=== PATIENT | female | born 1980 | race Asian ===

== ENCOUNTER → 2017-02-18 | Day surgery (SDC) | payer OTHER ==
--- NOTE | 2017-02-19 14:02 | PATH ---
Cytology Non-Gynecological Report Patient Name: GEO MONTALVO [facility] Rec. #: [id number] /Age/Gender: 1980 (Age: 36) / F Account: [id number] Location: RADIOLOGY Taken: 02/18/2017 Received: 02/18/2017 Reported: 02/19/2017 Physicians: Raman Sanches M.D. Specimen(s) Received RIGHT THYROID FNA Clinical History Right 2.24 x 0.62 x 0.97 cm Final Diagnosis THYROID, RIGHT, FINE NEEDLE ASPIRATION: SATISFACTORY FOR EVALUATION [place] CATEGORY II: BENIGN (NO MALIGNANT CELLS IDENTIFIED) BENIGN FOLLICULAR CELLS AND HURTHLE CELLS ALONG WITH ABUNDANT LYMPHOCYTES PRESENT, CONSISTENT WITH LYMPHOCYTIC (KEVON'S) THYROIDITIS IN THE PROPER CLINICAL CONTEXT. Comment: Recommend correlation with clinical findings and follow up as clinically indicated. Electronically Signed Pawel Becerra M.D. Gross Description Received are 6 direct smears, 3 of which are air-dried and Diff-Quik stained, and 3 of which are alcohol fixed and Pap stained. Also received is 20 ml of bloody formalin from which one cellblock is prepared.
== END | disposition home or self-care (01) ==
LOC: JRADIR 10:23
PROVIDERS: ATTEND Internal Medicine Endocrinology, Diabetes & Metabolism
PROC: 0G9H3ZX Drainage of Right Thyroid Gland Lobe, Percutaneous Approach, Diagnostic (ICD-10-PCS; principal; 2017-02-18)
PROC: BG44ZZZ Ultrasonography of Thyroid Gland (ICD-10-PCS; 2017-02-18)
DX: E06.3 Autoimmune thyroiditis (principal)
CPT/HCPCS: 76942; 88173; 88305-TC

== ENCOUNTER 2019-07-13 02:06 | Emergency (ER) | payer OTHER ==
[2019-07-13 02:24] VITALS: TEMP 98; BMI 32.0
[2019-07-13] MEDS ORDERED: METOCLOPRAMIDE HCL INJECTION 10 MG/2 ML VIAL IVPB ONE (03:12)
[2019-07-13] MEDS ORDERED: SODIUM CHLORIDE 0.9% 1000 ML INFUS.BAG IV ONE (03:12)
[2019-07-13] MEDS ORDERED: ACETAMINOPHEN 1000 MG/100 ML VIAL (NON FORMULARY) IVPB ONE (03:12)
[2019-07-13] MEDS ORDERED: ACETAMINOPHEN INJECTION 100 ML IVPB ONE (03:39)
[2019-07-13] MEDS ORDERED: METOCLOPRAMIDE HCL INJECTION 10 MG/2 ML VIAL ONE (03:39)
[2019-07-13 03:49] LABS: BASO % 0.8 % (0-2.0); EOS % 0.4 % (0-4.5); HEMATOCRIT 33.9 % (32.4-45.2); HEMOGLOBIN 11.2 GM/dL (10.7-15.3); LYMPH % 20.5 % (8-40); MCH 27.2 pg (25.7-33.7); MCHC 33.1 g/dl (32.0-36.0); MEAN CELL VOLUME 82.2 fl (80-96); MEAN PLT VOLUME 8.8 fl (7.5-11.1); MONO % 5.5 % (3.8-10.2); NEUT % 72.8 % (42.8-82.8); PLATELET COUNT 262 K/MM3 (134-434); RBC 4.12 M/mm3 (3.60-5.2); RDW 14.1 % (11.6-15.6); WHITE BLOOD COUNT 7.3 K/mm3 (4.0-10.0)
[2019-07-13 04:02] LABS: INR 1.02 (0.83-1.09)
[2019-07-13 04:15] LABS: BILIRUBIN,TOTAL 0.2 mg/dL (0.2-1); BLOOD UREA NITROGEN 12.3 mg/dL (7-18); CALCIUM 9.5 mg/dL (8.5-10.1); CREATININE 0.7 mg/dL (0.55-1.3); POTASSIUM 4.1 mmol/L (3.5-5.1); TOT PROT 7.7 g/dl (6.4-8.2)
[2019-07-13 04:59] LABS: EPI CELLS 3.4 /HPF (0-5/HPF); HYALINE CASTS 0 /lpf (0-8); PH,URINE 7.5 (5.0-8.0); URINE APPEARANCE CLEAR; URINE BACTERIA 91.4 /hpf (NEGATIVE); URINE BILIRUBIN NEGATIVE (NEGATIVE); URINE COLOR YELLOW; URINE GLUCOSE (UA) NEGATIVE (NEGATIVE); URINE KETONE NEGATIVE (NEGATIVE); URINE LEUK ESTERASE TRACE (NEGATIVE); URINE NITRITE NEGATIVE (NEGATIVE); URINE PROTEIN NEGATIVE (NEGATIVE); URINE RBC 1 /hpf (0-4); URINE UROBILINOGEN 0.2 mg/dL (0.2-1.0); URINE WBC 4 /hpf (0-5)
--- NOTE | 2019-07-13 05:17 | PDOC ---
Attending Attestation - Resident Resident Name: Edinson Mccurdyony - ED Attending Attestation I have performed the following: I have examined & evaluated the patient, The case was reviewed & discussed with the resident, I agree w/resident's findings & plan, Exceptions are as noted - HPI HPI: 07/13/19 05:15 38-year-old female no past medical history here today complaining of elevated blood pressure. Patient states she took her blood pressure at home because she was not feeling well at that time was having a headache and vertigo-like symptoms denies any associated nausea vomiting did have chest pain but no shortness of breath when she checked her blood pressure was 180 systolic has never had a prior diagnosis of hypertension and does not take any medications currently. Currently states that her vertigo has resolved she is not having any chest pain at this time does have a mild headache however - Physicial Exam PE: 07/13/19 05:16 Awake alert no acute distress lungs are clear bilaterally heart is regular without murmurs rubs or gallops abdomen is soft nontender skin is warm and dry neurologically patient is awake alert and oriented x3 normal cerebellar exam including [id number] alternating hand movements [id number] negative [place] [facility] - Medical Decision Making 07/13/19 05:16 38-year-old female here with elevated blood pressure headache and chest pain. Differential includes symptomatic hypertension angina ICH plan CT head CBC CMP troponin EKG chest x-ray will reassess On repeat assessment patient blood pressure is 106/70 with unremarkable 07/13/19 06:[address] negative. labs unremarakble. pt would like to go home feels improved.
--- NOTE | 2019-07-13 05:18 | PDOC ---
History of Present Illness - General Chief Complaint: Chest Pain Stated Complaint: BLOOD PRESSURE PROBLEM Time Seen by Provider: 07/13/19 02:50 History Source: Patient Exam Limitations: No Limitations - History of Present Illness Initial Comments: 07/13/19 05:15 38-year-old female with a past medical history of hypothyroidism present to the ER with multiple complaints. Patient is with her for us write the history. Patient states that she had elevated blood pressure today. Patient complains of a headache, which she describes as wrapping around her head, sudden onset, of questionable maximal intensity on onset. She endorses some blurry vision, nausea but no vomiting, and left arm numbness. She also complains of chest pain, which is reproducible, left parasternal, atraumatic. The chest pain is not associated with shortness of breath, abdominal pain, palpitations. She denies taking any medications for the headache or chest pain. She denies fever, chills, dysuria, hematuria. Patient also endorses vertiginous dizziness which started with her headache started. She endorses two episodes of this dizziness. She states that she has not had this before. She denies lightheadedness throughout these episodes. Past History - Past Medical History Allergies/Adverse Reactions: Allergies Allergy/AdvReac Type Severity Reaction Status Date / Time No Known Drug Allergies Allergy Verified 07/13/19 02:13 Home Medications: Ambulatory Orders Ferrous Sulfate [Feosol] 325 mg PO BID #60 tablet 01/11/15 Ibuprofen [Motrin -] 600 mg PO QID PRN 30 Days tablet 01/11/15 oxyCODONE HCL [Roxicodone -] 5 mg PO Q4H PRN #20 tablet 01/11/15 Docusate Sodium [Colace -] 100 mg PO BID #60 capsule 01/12/15 Anemia: No Asthma: No Cancer: No Cardiac Disorders: No CVA: No COPD: No CHF: No Dementia: No Diabetes: No GI Disorders: No Disorders: No HTN: No Hypercholesterolemia: No Liver Disease: No Seizures: No Thyroid Disease: Yes - Surgical History Abdominal Surgery: No Appendectomy: Yes Cardiac Surgery: No Cholecystectomy: No Lung Surgery: No Neurologic Surgery: No - Psycho Social/Smoking Cessation Hx Smoking History: Never smoked Have you smoked in the past 12 months: No Hx Alcohol Use: No Drug/Substance Use Hx: No Substance Use Type: None Hx Substance Use Treatment: No Review of Systems - Review of Systems Able to Perform ROS?: Yes Comments:: 07/13/19 05:15 GENERAL/CONSTITUTIONAL: No fever or chills. No weakness. HEAD, EYES, EARS, NOSE AND THROAT: No ear pain or discharge. No sore throat. CARDIOVASCULAR: + for chest pain. No palpitations or lightheadedness. RESPIRATORY: No cough, wheezing, shortness of breath, or hemoptysis. GASTROINTESTINAL: No abdominal pain, nausea, vomiting, diarrhea, or constipation. GENITOURINARY: No dysuria, frequency, hematuria, or change in urination. MUSCULOSKELETAL: No joint or muscle swelling or pain. No neck or back pain. SKIN: No rash or lesions. NEUROLOGIC: + for headache, changes in vision, and L arm numbness. No headache, numbness, tingling, focal weakness, loss of consciousness, or change in strength /sensation. Is the patient limited Ecuadorean proficient: No *Physical Exam - Vital Signs Last Vital Signs Temp Pulse Resp BP Pulse Ox 98.0 F 110 H 18 178/109 H 95 07/13/19 02:09 07/13/19 02:09 07/13/19 02:09 07/13/19 02:09 07/13/19 02:09 - Physical Exam 07/13/19 05:16 GENERAL: Well developed, well nourished. Awake and alert. No acute distress. HEENT: Normocephalic, atraumatic. Hearing grossly normal. Moist mucous membranes. PERRLA, EOMI. No conjunctival pallor. Sclera are non-icteric. NECK: Supple. Full ROM. No JVD. CARDIOVASCULAR: Regular rate and rhythm. No murmurs, rubs, or gallops. Distal pulses are 2+ and symmetric. PULMONARY: No evidence of respiratory distress. Lungs clear to auscultation bilaterally. No wheezing, rales, or rhonchi. ABDOMINAL: Soft. Non-tender. Non-distended. No rebound or guarding. GENITOURINARY: No CVA tenderness bilaterally. MUSCULOSKELETAL: Normal range of motion at all joints. No bony deformities or tenderness. EXTREMITIES: No cyanosis. No clubbing. No edema. No calf tenderness or swelling. SKIN: Warm and dry. Normal capillary refill. No rashes. No jaundice. NEUROLOGICAL: Alert, awake, appropriate. Cranial nerves 2-12 intact. No deficits to light touch and temperature in face, upper extremities and lower extremities. Decreased sensation in L arm. 5/5 strength in deltoids, biceps, triceps, quadriceps, hamstrings, and gastrocnemius. Normoreflexic in the upper and lower extremities. Normal speech. Gait is normal without ataxia. PSYCHIATRIC: Cooperative. Good eye contact. Appropriate mood and affect. ED Treatment Course - LABORATORY CBC & Chemistry Diagram: 07/13/19 03:30 07/13/19 03:30 - ADDITIONAL ORDERS Additional order review: Laboratory Results 07/13/19 07/13/19 07/13/19 04:20 04:20 03:30 PT with INR 12.00 INR 1.02 Sodium Potassium Chloride Carbon Dioxide Anion Gap BUN Creatinine Est GFR (CKD-EPI)AfAm Est GFR (CKD-EPI)NonAf Random Glucose Calcium Total Bilirubin AST ALT Alkaline Phosphatase Creatine Kinase Creatine Kinase Index CK-MB (CK-2) Troponin I Total Protein Albumin Urine Color Yellow Urine Appearance Clear Urine pH 7.5 D Ur Specific [place] 1.007 L Urine Protein Negative Urine Glucose (UA) Negative Urine Ketones Negative Urine Blood Negative Urine Nitrite Negative Urine Bilirubin Negative Urine Urobilinogen 0.2 Ur Leukocyte Esterase Trace Urine WBC (Auto) 4 Urine RBC (Auto) 1 Urine Casts (Auto) 0 U Epithel Cells (Auto) 3.4 Urine Bacteria (Auto) 91.4 Urine HCG, Qual Negative 07/13/19 03:30 PT with INR INR Sodium 141 Potassium 4.1 Chloride 110 H Carbon Dioxide 25 Anion Gap 6 L BUN 12.3 Creatinine 0.7 Est GFR (CKD-EPI)AfAm 129.19 Est GFR (CKD-EPI)NonAf 111.47 Random Glucose 95 Calcium 9.5 Total Bilirubin 0.2 AST 18 ALT 22 Alkaline Phosphatase 47 Creatine Kinase 206 H Creatine Kinase Index 1.1 CK-MB (CK-2) 2.4 Troponin I 0.02 Total Protein 7.7 Albumin 4.0 Urine Color Urine Appearance Urine pH Ur Specific [place] Urine Protein Urine Glucose (UA) Urine Ketones Urine Blood Urine Nitrite Urine Bilirubin Urine Urobilinogen Ur Leukocyte Esterase Urine WBC (Auto) Urine RBC (Auto) Urine Casts (Auto) U Epithel Cells (Auto) Urine Bacteria (Auto) Urine HCG, Qual 07/13/19 03:30 RBC 4.12 MCV 82.2 MCHC 33.1 RDW 14.1 D MPV 8.8 Neutrophils % 72.8 Lymphocytes % 20.5 D Monocytes % 5.5 Eosinophils % 0.4 Basophils % 0.8 D - RADIOLOGY Radiology Studies Ordered: Category Date Time Status HEAD CT WITHOUT CONTRAST [CT] Stat CT Scan 07/13/19 03:12 Ordered CHEST PA & LAT [RAD] Stat Radiology 07/13/19 02:51 Ordered - Medications Given in the ED: ED Medications Discontinued Medications Generic Name Dose Route Start Last Admin Trade Name Gilberto PRN Reason Stop Dose Admin Acetaminophen 1,000 mg 07/13/19 03:12 07/13/19 03:46 Ofirmev Injection - IVPB 07/13/19 03:13 1,000 mg ONCE ONE Administration Metoclopramide HCl 10 mg 07/13/19 03:12 07/13/19 03:47 Reglan Injection - IVPB 07/13/19 03:13 10 mg ONCE ONE Administration Sodium Chloride 1,000 ml 07/13/19 03:12 07/13/19 03:46 Normal Saline - IV 07/13/19 03:13 1,000 ml ONCE ONE Administration Medical Decision Making - Medical Decision Making 07/13/19 05:21 38-year-old female with past medical history of hypothyroidism, slightly uncomfortable appearing, presents with multiple complaints. Complaint is her headache associated with decreased sensation in her left arm and nausea. Chest pain is reproducible. EKG on remarkable. Looked in labs and CAT scan of her head. Treating headache symptomatically with Tylenol and Reglan. Obtaining labs and will monitor closely. 07/13/19 06:39 CTH negative. Pt states that her symptoms have resolved. Pending repeat vitals, and if normal, will d/c with PCP f/u. Discharge - Discharge Information Problems reviewed: Yes Clinical Impression/Diagnosis: Headache Qualifiers: Headache type: unspecified Headache chronicity pattern: acute headache Intractability: not intractable Qualified Code(s): R51 - Headache Condition: Good Disposition: HOME - Admission No - Follow up/Referral Referrals: Julia Gutierrez MD [Primary Care Provider] - - Patient Discharge Instructions Patient Printed Discharge Instructions: DI for Headache Additional Instructions: Your ER visit is not complete until your follow up with your primary care physician. Please follow up with your primary care physician in 1-2 days. Please return to the ER if you have any signs or symptoms of chest pain, shortness of breath, uncontrollable fever, chills, nausea, vomiting, numbness, tingling, or weakness in any part of your body, changes in vision, or slurred speech. Please take your medications as prescribed. Please return to the ER if symptoms persist, worsen, or new symptoms arise. - Post Discharge Activity
[2019-07-13 06:50] VITALS: BP 129/90; PULSE 83
--- NOTE | 2019-07-13 09:40 | EKG ---
Test Reason : Blood Pressure : / mmHG Vent. Rate : 100 BPM Atrial Rate : 100 BPM P-R Int : 156 ms QRS Dur : 096 ms QT Int : 350 ms P-R-T Axes : 054 035 036 degrees QTc Int : 451 ms NORMAL SINUS RHYTHM POSSIBLE LEFT ATRIAL ENLARGEMENT INCOMPLETE RIGHT BUNDLE BRANCH BLOCK BORDERLINE ECG NO PREVIOUS ECGS AVAILABLE Confirmed by Trey Glynn MD ([id number]) on 07/13/2019 9:39:56 AM Referred By: Confirmed By:Trye Glynn MD
== END 2019-07-13 06:50 | disposition home or self-care (01) ==
LOC: JER 02:06
PROC: 3E033GC Introduction of Other Therapeutic Substance into Peripheral Vein, Percutaneous Approach (ICD-10-PCS; principal; 2019-07-13)
PROC: 3E033NZ Introduction of Analgesics, Hypnotics, Sedatives into Peripheral Vein, Percutaneous Approach (ICD-10-PCS; 2019-07-13)
DX: R51 Headache (principal); I10 Essential (primary) hypertension; E03.9 Hypothyroidism, unspecified
CPT/HCPCS: 36415; 70450-TC; 80053; 81003; 82550; 82553; 84484; 84703; 85025; 85610; 87086; 93005; 93010; 96374; 96375; 99285-25; J0131; J7030